=== PATIENT | male | born 1945 | race Caucasian/White ===

== ENCOUNTER 2017-04-28 18:54 | Inpatient (IN) | payer BC, OTHER ==
[~2017-04-28] VITALS: Ht 175.3 cm; Wt 82.0 kg
[2017-04-28] MEDS ORDERED: SODIUM CHLORIDE 0.9% 1000ML 1,000 ML IV SCH (18:58)
[2017-04-28 19:14] LABS: BASO % 0.3 %; BASO ABS # 0.02 K/uL (0-0.2); EOS % 1.3 %; HEMATOCRIT 49.8 % (42-52); HEMOGLOBIN 17.4 g/dL (14.0-18.0); IG# 0.02 K/uL (0.00-0.02); LYMPH % 25.1 %; LYMPH ABS # 1.86 K/uL (1.2-3.4); MEAN CELL VOLUME 97.5 fL (80-100); MEAN CORPUSCULAR HEMOGLOBIN 34.1 pg (25-34); MEAN CORPUSCULAR HGB CONC 34.9 g/dl (32-36); MONO % 8.4 %; MONO ABS # 0.62 K/uL (0.11-0.59); NEUT % 64.6 %; NEUT ABS # 4.79 K/uL (1.4-6.5); PLATELET COUNT 211 K/uL (130-400); RED CELL DISTRIBUTION WIDTH CV 13.6 % (11.5-14.5); RED CELL DISTRIBUTION WIDTH SD 48.3 fL (36.4-46.3); WHITE BLOOD COUNT 7.41 K/uL (4.8-10.8)
--- NOTE | 2017-04-28 19:18 | DIAGNOSTIC IMAGING REPORT ---
HEAD WITHOUT CONTRAST (CT) CLINICAL HISTORY: 71 years-old Male with Stroke. Acute strokelike symptoms. TECHNIQUE: Multiple axial CT images of the head were obtained without contrast. A dose lowering technique was utilized adhering to the principles of ALARA. CT DOSE: 537.48 mGy.cm COMPARISON: None. FINDINGS: No acute intracranial hemorrhage, midline shift, intracranial mass, hydrocephalus, territorial ischemia or abnormal extra-axial collection. Moderate atrophy with moderate degree of patchy low-attenuation within the periventricular white matter suggesting chronic microvascular ischemic changes. Vascular calcifications are seen at the level of the skull base. The calvarium is intact. The paranasal sinuses, mastoid air cells, and middle ear cavities are clear. IMPRESSION: No acute intracranial abnormality identified. The above report was generated using voice recognition software. It may contain grammatical, syntax or spelling errors. Electronically signed by: Gonzalo Frye M.D. 04/28/2017 7:16 PM Dictated Date/Time: 04/28/2017 7:12 PM
[2017-04-28 19:19] LABS: ISTAT CREATININE 0.9 mg/dl (0.6-1.3); ISTAT IONIZED CALCIUM 1.1 mmol/l (1.12-1.32); ISTAT POTASSIUM 3.1 mEq/L (3.3-5.0)
[2017-04-28 19:23] LABS: INR 1.1 (0.9-1.1); PTT PATIENT 27.7 SECONDS (21.0-31.0)
--- NOTE | 2017-04-28 19:37 | DIAGNOSTIC IMAGING REPORT ---
CHEST ONE VIEW PORTABLE HISTORY: 71 years-old Male Stroke acute strokelike symptoms COMPARISON: None available TECHNIQUE: Portable AP view the chest FINDINGS: Cardiac silhouette is mildly enlarged. Atherosclerosis of the aorta. No pneumothorax, pleural effusion, focal airspace consolidation or overt pulmonary edema. Minimal linear subsegmental left basilar opacities suggest atelectasis/scarring. Bones of the chest appear grossly intact. Degenerative changes noted within the shoulders and spine. IMPRESSION: Mild cardiomegaly without acute process. The above report was generated using voice recognition software. It may contain grammatical, syntax or spelling errors. Electronically signed by: Gonzalo Frye M.D. 04/28/2017 7:35 PM Dictated Date/Time: 04/28/2017 7:34 PM
[2017-04-28 19:44] LABS: BLOOD UREA NITROGEN 14 mg/dl (7-18); CALCIUM 8.9 mg/dl (8.5-10.1); CARBON DIOXIDE 26 mmol/L (21-32); CKMB 2.4 ng/ml (0.5-3.6); CREATININE 1.17 mg/dl (0.60-1.40); GLUCOSE 102 mg/dl (70-99); SODIUM 141 mmol/L (136-145)
[2017-04-28] MEDS ORDERED: MAGNESIUM SULFATE 1GM / D5W 1 GM BAG IV STA (19:46)
[2017-04-28] MEDS ORDERED: SODIUM CHLORIDE 0.9% 1000ML 1,000 ML IV STA (19:58)
[2017-04-28] MEDS ORDERED: POTASSIUM CHLORIDE 10 MEQ / 100ML WTR IV STA (19:59)
[2017-04-28] MEDS ORDERED: OPTIRAY 320 IV PRN (20:15)
[2017-04-28] MEDS ORDERED: DILT120C68 PO (20:20)
[2017-04-28] MEDS ORDERED: APIX1TAB3 PO (20:24)
[2017-04-28 20:25] LABS: ALBUMIN 3.7 gm/dl (3.4-5.0); TOTAL PROTEIN 7.7 gm/dl (6.4-8.2)
[2017-04-28] MEDS ORDERED: UNKNOWN ANTIBIOTIC (20:25)
--- NOTE | 2017-04-28 20:53 | DIAGNOSTIC IMAGING REPORT ---
NECK ANGIO WITH CONTRAST, HEAD ANGIO WITH CONTRAST CLINICAL HISTORY: 71 years-old Male presents with acute strokelike symptoms. COMPARISON STUDY: CT of the head of same day TECHNIQUE: Following the IV administration of 118 of Optiray 320, CT angiogram of the head and neck was performed from the aortic arch to the skull base. Images are reviewed in the axial, sagittal, and coronal planes. 3-D MIPS images are created and assessed. IV contrast was administered without complication. All measurements were calculated based on NASCET criteria. A dose lowering technique was utilized adhering to the principles of ALARA. CT DOSE: 583.34 mGy.cm FINDINGS: Bovine morphology of the aortic arch. There is approximately 50% luminal narrowing involving the proximal left subclavian artery proximal to the origin of the left vertebral artery. The remaining subclavian arteries are widely patent. The bilateral common carotid arteries are widely patent. There is moderate mixed plaquing of the bilateral carotid bulbs resulting in less than 50% luminal narrowing bilaterally. Tortuosity involves the petrous portion left internal carotid artery. Moderate atherosclerosis is noted involving the cavernous and clinoid portions of the internal carotid arteries bilaterally without high-grade stenosis. The bilateral middle and anterior cerebral arteries are widely patent. The anterior communicating artery is also patent and within normal limits. There is approximately 50% luminal narrowing of the left vertebral artery origin secondary to mixed plaquing. Vertebral arteries are codominant. Less than 50% luminal narrowing involves the origin of the right vertebral artery secondary to mixed plaque. Moderate plaquing involves the V4 segments of the vertebral arteries bilaterally without high-grade stenosis. The basilar and bilateral posterior cerebral arteries are widely patent. There is no aneurysm, high-grade stenosis, proximal branch occlusion or dissection. Cerebral venous sinuses appear patent and within normal limits. Moderate emphysematous changes of the lung apices. Thyroid appears homogeneous with a low attenuating 5 mm nodule the posterior right thyroid. No pathologic adenopathy identified. Soft tissues of the neck appear to be within normal limits. Mastoid air cells are clear. Minimal mucosal thickening of the right maxillary sinus. Multilevel facet arthrosis and intervertebral disc space narrowing of the cervical spine with uncovertebral spurring. Orbits and soft tissues are unremarkable. No acute intracranial abnormality identified. No abnormal intracranial enhancement. IMPRESSION: 1. No aneurysm, high-grade stenosis, dissection or proximal branch occlusion. 2. Approximately 50% luminal narrowing involves the proximal left subclavian artery secondary to atheromatous plaque. 3. Moderate emphysema. The above report was generated using voice recognition software. It may contain grammatical, syntax or spelling errors. Electronically signed by: Gonzalo Frye M.D. 04/28/2017 8:51 PM Dictated Date/Time: 04/28/2017 8:41 PM
[2017-04-28] MEDS ORDERED: ACETAMINOPHEN 325 MG TAB PO PRN (22:00)
[2017-04-28] MEDS ORDERED: APIXABAN 2.5 MG TAB PO ONE (22:02)
[2017-04-28] MEDS ORDERED: ONDANSETRON 8MG OD TAB PO PRN (22:15)
[2017-04-28] MEDS ORDERED: ACETAMINOPHEN IV 100 ML IV PRN (22:15)
[2017-04-28 22:30] VITALS: BP 168/89; PULSE 78; TEMP 36.3; O2SAT 97; Ht 175.3 cm; Wt 82.0 kg
--- NOTE | 2017-04-28 22:30 | History and Physical ---
History & Physical Date & Time of Service: Apr 28, 2017 at 22:29 Chief Complaint: Slur Speech, All Symptoms Of Stroke Primary Care Physician: No Doctor, Assigned History of Present Illness Source: patient, family, spouse, hospital records The patient is a 71-year-old male who presents to the emergency department with family, due to the development of confusion about 30 minutes prior to arrival. 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 She reports that he was walking with her when he suddenly became confused, had slurred speech, was not making any sense when he was talking, and felt generally weak. When he arrived to the ED, the nurse had to help him out of the car and she reported that he was unable to move his right upper extremity at that time. 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 He is on Eliquis for history of atrial fibrillation. Later on during his ED visit when I examined him, when he was somewhat improved , he reported to me that he was having issues with abdominal discomfort and loose stools for a few days, with decreased oral intake for that reason. Because of his initial symptoms upon presentation to the ED, he was worked up as a stroke alert. Past Medical/Surgical History Past medical/surgical history-- Atrial fibrillation Hypertension Open appendectomy/partial colectomy Family History noncontributory Social History Smoking Status: Unknown if Ever Smoked Smokeless Tobacco Use: No Alcohol Use: none Drug Use: none Marital Status: Housing status: lives with family Immunizations History of Influenza Vaccine: Unknown History of Tetanus Vaccine?: Unknown History of Pneumococcal: Unknown History of Hepatitis B Vaccine: Unknown Allergies Coded Allergies: Sulfamethoxazole w/Trimethoprim (Verified Allergy, Intermediate, HIVES, 12/06) Home Medications Scheduled Apixaban (Eliquis), Unknown Dose PO BID Diltiazem Hcl Ext Rel (Tiazac), Unknown Dose PO BID Miscellaneous Medications [Unknown Antibiotic] Review of Systems The patient denies chest pain, palpitations, shortness of breath, dyspnea on exertion, lower extremity swelling, sore throat, fevers, chills, sweats, vomiting, blood in urine or stool, dysuria , urinary frequency or urgency, lightheadedness, dizziness, loss of consciousness, rash, abnormal bruising or bleeding, generalized arthralgias or myalgias, back or neck pain, or night sweats. The review of systems is otherwise negative other than for that already noted above, and at least 10 systems have been reviewed. Physical Exam Vital Signs Date Time Temp Pulse Resp B/P (MAP) Pulse Ox O2 Delivery O2 Flow Rate FiO2 04/28/17 21:51 76 18 138/81 96 Room Air 04/28/17 20:45 75 18 159/83 97 Room Air 04/28/17 19:41 78 04/28/17 19:05 Room Air 04/28/17 19:01 36.4 04/28/17 18:56 66 20 178/89 95 Room Air The patient is awake, alert and oriented 3, normocephalic and atraumatic, lying in bed and in no acute distress. HEENT--PERRL, EOMI, mucous membranes and oropharynx dry. Neck--supple. No JVD. No bruits. Thyroid normal, trachea midline, no adenopathy. Heart--normal S1 and S2. No murmurs, rubs or gallops. Lungs--clear bilaterally, no respiratory distress, no accessory muscle use. Abdomen--decreased bowel sounds, mildly distended, moderately tympanitic, no tenderness. Extremities--no cyanosis or clubbing. No edema. There are good distal pulses b/ l. Dermatologic--normal skin turgor, normal color, no abnormal lymph nodes, no rash. Neurologic--cranial nerves II through XII grossly intact. Rheumatologic--normal range of motion. Psychiatric--normal affect. Diagnostics Laboratory Results Results Past 24 Hours Test 04/28/17 19:01 04/28/17 19:02 04/28/17 19:04 04/28/17 19:07 Range/Units Bedside Prothrombin Time INR 1.1 0.9-1.1 Bedside Glucose 106 70-99 mg/dl White Blood Count 7.41 4.8-10.8 K/uL Red Blood Count 5.11 4.7-6.1 M/uL Hemoglobin 17.4 14.0-18.0 g/dL Hematocrit 49.8 42-52 % Mean Corpuscular Volume 97.5 80-100 fL Mean Corpuscular Hemoglobin 34.1 25-34 pg Mean Corpuscular Hemoglobin Concent 34.9 32-36 g/dl Platelet Count 211 130-400 K/uL Mean Platelet Volume 10.0 7.4-10.4 fL Neutrophils (%) (Auto) 64.6 % Lymphocytes (%) (Auto) 25.1 % Monocytes (%) (Auto) 8.4 % Eosinophils (%) (Auto) 1.3 % Basophils (%) (Auto) 0.3 % Neutrophils # (Auto) 4.79 1.4-6.5 K/uL Lymphocytes # (Auto) 1.86 1.2-3.4 K/uL Monocytes # (Auto) 0.62 0.11-0.59 K/uL Eosinophils # (Auto) 0.10 0-0.5 K/uL Basophils # (Auto) 0.02 0-0.2 K/uL RDW Standard Deviation 48.3 36.4-46.3 fL RDW Coefficient of Variation 13.6 11.5-14.5 % Immature Granulocyte % (Auto) 0.3 % Immature Granulocyte # (Auto) 0.02 0.00-0.02 K/uL Prothrombin Time 11.4 9.0-12.0 SECONDS Prothromb Time International Ratio 1.1 0.9-1.1 Activated Partial Thromboplast Time 27.7 21.0-31.0 SECONDS Partial Thromboplastin Ratio 1.1 Sodium Level 141 136-145 mmol/L Potassium Level 3.0 3.5-5.1 mmol/L Chloride Level 106 98-107 mmol/L Carbon Dioxide Level 26 21-32 mmol/L Anion Gap 9.0 20.0 16-25 mmol/L Blood Urea Nitrogen 14 7-18 mg/dl Creatinine 1.17 0.60-1.40 mg/dl Est Creatinine Clear Calc Drug Dose 62.2 ml/min Estimated GFR () 72.8 Estimated GFR (Non- 62.8 BUN/Creatinine Ratio 12.1 10-20 Random Glucose 102 70-99 mg/dl Calcium Level 8.9 8.5-10.1 mg/dl Magnesium Level 0.4 1.8-2.4 mg/dl Total Bilirubin 0.7 0.2-1 mg/dl Direct Bilirubin 0.2 0-0.2 mg/dl Aspartate Amino Transf (AST/SGOT) 28 15-37 U/L Alanine Aminotransferase (ALT/SGPT) 44 12-78 U/L Alkaline Phosphatase 77 45-117 U/L Total Creatine Kinase 155 39-308 U/L Creatine Kinase MB 2.4 0.5-3.6 ng/ml Creatine Kinase MB Ratio 1.5 0-3.0 Troponin I < 0.015 0-0.045 ng/ml Total Protein 7.7 6.4-8.2 gm/dl Albumin 3.7 3.4-5.0 gm/dl Bedside Hemoglobin 17.0 14.0-18.0 g/dl Bedside Hematocrit 50 42-52 % Bedside Sodium 144 135-144 mEq/L Bedside Potassium 3.1 3.3-5.0 mEq/L Bedside Chloride 102 101-112 mEq/L Bedside Total CO2 25 24-31 mEq/l Bedside Blood Urea Nitrogen 14 7-18 mg/dl Bedside Creatinine 0.9 0.6-1.3 mg/dl Bedside Glucose (other) 105 70-99 mg/dl Bedside Ionized Calcium (Robert) 1.10 1.12-1.32 mmol/l Test 04/28/17 20:35 Range/Units Urine Color YELLOW Urine Appearance CLEAR CLEAR Urine pH 6.5 4.5-7.5 Urine Specific [place] 1.020 1.000-1.030 Urine Protein 2+ NEG Urine Glucose (UA) NEG NEG Urine Ketones TRACE NEG Urine Occult Blood NEG NEG Urine Nitrite NEG NEG Urine Bilirubin NEG NEG Urine Urobilinogen NEG NEG Urine Leukocyte Esterase NEG NEG Urine WBC (Auto) 1-5 0-5 /hpf Urine RBC (Auto) 0-4 0-4 /hpf Urine Hyaline Casts (Auto) 1-5 0-5 /lpf Urine Epithelial Cells (Auto) 5-10 0-5 /lpf Urine Bacteria (Auto) NEG NEG Diagnostic Radiology Patient Name: KURTIS NOGUEIRA Unit Number: [id number] Dictated: 04/28/171911 Transcribed: 04/28/171911 [facility] Printed Date/Time: [~ rep prt dt]/[~ rep prt tm] [~ rep ct labl] - [~ rep ct ivnm] [facility] [place] [address] Dictated: 04/28/171911 Transcribed: 04/28/171911 JR Printed Date/Time: [~ rep prt dt]/[~ rep prt tm] [~ rep ct labl] - [~ rep ct ivnm] [~ rep ct add3]] HEAD WITHOUT CONTRAST (CT) CLINICAL HISTORY: 71 years-old Male with Stroke. Acute strokelike symptoms. TECHNIQUE: Multiple axial CT images of the head were obtained without contrast. A dose lowering technique was utilized adhering to the principles of ALARA. CT DOSE: 537.48 mGy.cm COMPARISON: None. FINDINGS: No acute intracranial hemorrhage, midline shift, intracranial mass, hydrocephalus, territorial ischemia or abnormal extra-axial collection. Moderate atrophy with moderate degree of patchy low-attenuation within the periventricular white matter suggesting chronic microvascular ischemic changes. Vascular calcifications are seen at the level of the skull base. The calvarium is intact. The paranasal sinuses, mastoid air cells, and middle ear cavities are clear. IMPRESSION: No acute intracranial abnormality identified. The above report was generated using voice recognition software. It may contain grammatical, syntax or spelling errors. Electronically signed by: Gonzalo Frye M.D. 04/28/2017 7:16 PM Dictated Date/Time: 04/28/2017 7:12 PM The status of this report is Signed. Draft = Not yet reviewed or approved by Radiologist. Signed = Reviewed and approved by Radiologist. <AttendingPhy></AttendingPhy> <FamilyPhy></FamilyPhy> <PrimaryPhy></PrimaryPhy> <UnitNumber>[id number]</UnitNumber> <VisitNumber>[id number]</VisitNumber> < PatientName>KURTIS NOGUEIRA JR</PatientName> <DateOfBirth>1945</ DateOfBirth> <Location>[facility]</Location> <ServiceDate>04/28/17</ServiceDate> <MNE >ESINDI</MNE> <OrderingPhy>Kael Harrell DO</OrderingPhy> <OrderingPhyMNE>f rep ord dr zhu</OrderingPhyMNE> <DictatingPhyMNE>f rep dict dr zhu</ DictatingPhyMNE> <CCListMNE>f rep ct mne</CCListMNE> <AdmittingPhyMNE>f pt admit dr zhu</AdmittingPhyMNE> <AttendingPhyMNE>f pt attend dr mne</ AttendingPhyMNE> <ConsultingPhyMNE>f pt consult dr zhu</ConsultingPhyMNE> <FamilyPhyMNE>f pt fam dr zhu</FamilyPhyMNE> <OtherPhyMNE>f pt other dr zhu</OtherPhyMNE> < PrimaryPhyMNE>f pt prim care dr zhu</PrimaryPhyMNE> <ReferringPhyMNE>f pt referring dr zhu</ReferringPhyMNE> Patient Name: KURTIS NOGUEIRA JR Unit Number: [id number] Dictated: 04/28/171933 Transcribed: 04/28/171933 J[facility] Printed Date/Time: [~ rep prt dt]/[~ rep prt tm] [~ rep ct labl] - [~ rep ct ivnm] [facility] Radiology Department [place] [id number] Dictated: 04/28/171933 Transcribed: 04/28/171933 [facility] Printed Date/Time: [~ rep prt dt]/[~ rep prt tm] [~ rep ct labl] - [~ rep ct ivnm] CHEST ONE VIEW PORTABLE HISTORY: 71 years-old Male Stroke acute strokelike symptoms COMPARISON: None available TECHNIQUE: Portable AP view the chest FINDINGS: Cardiac silhouette is mildly enlarged. Atherosclerosis of the aorta. No pneumothorax, pleural effusion, focal airspace consolidation or overt pulmonary edema. Minimal linear subsegmental left basilar opacities suggest atelectasis/scarring. Bones of the chest appear grossly intact. Degenerative changes noted within the shoulders and spine. IMPRESSION: Mild cardiomegaly without acute process. The above report was generated using voice recognition software. It may contain grammatical, syntax or spelling errors. Electronically signed by: Gonzalo Frye M.D. 04/28/2017 7:35 PM Dictated Date/Time: 04/28/2017 7:34 PM The status of this report is Signed. Draft = Not yet reviewed or approved by Radiologist. Signed = Reviewed and approved by Radiologist. <AttendingPhy></AttendingPhy> <FamilyPhy></FamilyPhy> <PrimaryPhy></PrimaryPhy> <UnitNumber>[id number]</UnitNumber> <VisitNumber>[id number]</VisitNumber> < PatientName>KURTIS NOGUEIRA Nader [place]</PatientName> <DateOfBirth>1945</ DateOfBirth> <Location>[facility]</Location> <ServiceDate>04/28/17</ServiceDate> <MNE >ESINDI</MNE> <OrderingPhy>Kael Harrell DO</OrderingPhy> <OrderingPhyMNE>f rep ord dr zhu</OrderingPhyMNE> <DictatingPhyMNE>f rep dict dr zhu</ DictatingPhyMNE> <CCListMNE>f rep ct mne</CCListMNE> <AdmittingPhyMNE>f pt admit dr zhu</AdmittingPhyMNE> <AttendingPhyMNE>f pt attend dr zhu</ AttendingPhyMNE> <ConsultingPhyMNE>f pt consult dr zhu</ConsultingPhyMNE> <FamilyPhyMNE>f pt fam dr zhu</FamilyPhyMNE> <OtherPhyMNE>f pt other dr zhu</OtherPhyMNE> < PrimaryPhyMNE>f pt prim care dr zhu</PrimaryPhyMNE> <ReferringPhyMNE>f pt referring dr zhu</ReferringPhyMNE> Patient Name: KURTIS NOGUEIRA Nader [place] Unit Number: [id number] Dictated: 04/28/172040 Transcribed: 04/28/172040 [facility] Printed Date/Time: [~ rep prt dt]/[~ rep prt tm] [~ rep ct labl] - [~ rep ct ivnm] [facility] Radiology Department [place], [place] [id number] Dictated: 04/28/172040 Transcribed: 04/28/172040 [facility] Printed Date/Time: [~ rep prt dt]/[~ rep prt tm] [~ rep ct labl] - [~ rep ct ivnm] [~ rep ct add3]] NECK ANGIO WITH CONTRAST, HEAD ANGIO WITH CONTRAST CLINICAL HISTORY: 71 years-old Male presents with acute strokelike symptoms. COMPARISON STUDY: CT of the head of same day TECHNIQUE: Following the IV administration of 118 of Optiray 320, CT angiogram of the head and neck was performed from the aortic arch to the skull base. Images are reviewed in the axial, sagittal, and coronal planes. 3-D MIPS images are created and assessed. IV contrast was administered without complication. All measurements were calculated based on NASCET criteria. A dose lowering technique was utilized adhering to the principles of ALARA. CT DOSE: 583.34 mGy.cm FINDINGS: Bovine morphology of the aortic arch. There is approximately 50% luminal narrowing involving the proximal left subclavian artery proximal to the origin of the left vertebral artery. The remaining subclavian arteries are widely patent. The bilateral common carotid arteries are widely patent. There is moderate mixed plaquing of the bilateral carotid bulbs resulting in less than 50% luminal narrowing bilaterally. Tortuosity involves the petrous portion left internal carotid artery. Moderate atherosclerosis is noted involving the cavernous and clinoid portions of the internal carotid arteries bilaterally without high-grade stenosis. The bilateral middle and anterior cerebral arteries are widely patent. The anterior communicating artery is also patent and within normal limits. There is approximately 50% luminal narrowing of the left vertebral artery origin secondary to mixed plaquing. Vertebral arteries are codominant. Less than 50% luminal narrowing involves the origin of the right vertebral artery secondary to mixed plaque. Moderate plaquing involves the V4 segments of the vertebral arteries bilaterally without high-grade stenosis. The basilar and bilateral posterior cerebral arteries are widely patent. There is no aneurysm, high-grade stenosis, proximal branch occlusion or dissection. Cerebral venous sinuses appear patent and within normal limits. Moderate emphysematous changes of the lung apices. Thyroid appears homogeneous with a low attenuating 5 mm nodule the posterior right thyroid. No pathologic adenopathy identified. Soft tissues of the neck appear to be within normal limits. Mastoid air cells are clear. Minimal mucosal thickening of the right maxillary sinus. Multilevel facet arthrosis and intervertebral disc space narrowing of the cervical spine with uncovertebral spurring. Orbits and soft tissues are unremarkable. No acute intracranial abnormality identified. No abnormal intracranial enhancement. IMPRESSION: 1. No aneurysm, high-grade stenosis, dissection or proximal branch occlusion. 2. Approximately 50% luminal narrowing involves the proximal left subclavian artery secondary to atheromatous plaque. 3. Moderate emphysema. The above report was generated using voice recognition software. It may contain grammatical, syntax or spelling errors. Electronically signed by: Gonzalo Frye M.D. 04/28/2017 8:51 PM Dictated Date/Time: 04/28/2017 8:41 PM The status of this report is Signed. Draft = Not yet reviewed or approved by Radiologist. Signed = Reviewed and approved by Radiologist. <AttendingPhy></AttendingPhy> <FamilyPhy>No Doctor, Assigned</FamilyPhy> < PrimaryPhy>No Doctor, Assigned</PrimaryPhy> <UnitNumber>[id number]</UnitNumber> <VisitNumber>[id number]</VisitNumber> <PatientName>KURTIS NOGUEIRA JR</ PatientName> <DateOfBirth>1945</DateOfBirth> <Location>[facility]</Location> < ServiceDate>04/28/17</ServiceDate> <MNE>ESINDI</MNE> <OrderingPhy>Kael Harrell DO</OrderingPhy> <OrderingPhyMNE>f rep ord dr zhu</OrderingPhyMNE> < DictatingPhyMNE>f rep dict dr zhu</DictatingPhyMNE> <CCListMNE>f rep ct mne</ CCListMNE> <AdmittingPhyMNE>f pt admit dr zhu</AdmittingPhyMNE> <AttendingPhyMNE >f pt attend dr zhu</AttendingPhyMNE> <ConsultingPhyMNE>f pt consult dr zhu</ConsultingPhyMNE> <FamilyPhyMNE>f pt fam dr zhu</FamilyPhyMNE> <OtherPhyMNE>f pt other dr zhu</OtherPhyMNE> < PrimaryPhyMNE>f pt prim care dr zhu</PrimaryPhyMNE> <ReferringPhyMNE>f pt referring dr zhu</ReferringPhyMNE> Patient Name: KURTIS NOGUEIRA JR Unit Number: [id number] Dictated: 04/28/172249 Transcribed: 04/28/172249 [facility] Printed Date/Time: [~ rep prt dt]/[~ rep prt tm] [~ rep ct labl] - [~ rep ct ivnm] [facility] Radiology Department [place] [id number] Dictated: 04/28/172249 Transcribed: 04/28/172249 J[facility] Printed Date/Time: [~ rep prt dt]/[~ rep prt tm] [~ rep ct labl] - [~ rep ct ivnm] [~ rep ct add3]] ABDOMEN AND PELVIS CT WITHOUT CONTRAST CT DOSE: 721.29 mGy.cm HISTORY: Acute generalized abdominal pain with distention and diarrhea abdominal pain, distention, diarrhea TECHNIQUE: Multiaxial CT images of the abdomen and pelvis were performed without contrast. A dose lowering technique was utilized adhering to the principles of ALARA. COMPARISON STUDY: None. FINDINGS: Mild dependent subsegmental bibasilar atelectasis. There is no pneumatosis or pneumoperitoneum identified. Imaged inferior cardiac chambers are moderately enlarged. Mural fibrofatty changes of the left ventricular apex suggest remote infarction. The liver, spleen, pancreas and right adrenal gland are within normal limits. There is nodular thickening of the left adrenal gland with mild stranding stranding suggesting hyperplasia. Cholelithiasis without CT evidence of acute cholecystitis. No intrahepatic biliary ductal dilation. Retained contrast in the renal collecting systems from recent contrast-enhanced study. Mild nonspecific bilateral perinephric stranding. Exophytic hyperattenuating 1.3 cm lesion of the inferior pole left kidney posteriorly suggests proteinaceous or hemorrhagic cyst. No obstructive uropathy identified. Ureters are normal in caliber. Prostate is mildly prominent in size with central coarse calcifications. Small fat filled left inguinal hernia. Asymmetric prominence of the right seminal vesicles. 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 Mild dilation of the bilateral external iliac arteries also noted, 2.0 cm on the left and 1.8 cm on the right. No bulky adenopathy identified. Small sliding-type hiatal hernia. Prior right lower quadrant abdominal wall hernia repair. Extensive sigmoid colon diverticulosis without CT evidence of acute diverticulitis. Prior appendectomy. Mildly prominent loops of small bowel within the right upper and central upper abdomen demonstrate internal fecal contents in a mildly prominent in size. Additionally, there are several dilated loops of small bowel within the left upper abdomen measuring up to 4.0 cm transversely with associated air-fluid levels. The dilated loops are centered around an area of prior partial small bowel resection with a side side anastomosis, image 160 series 3. Angulated loops of small bowel are noted on image 233 series 3 suggesting underlying adhesions. Diastases recti with fat filled periumbilical hernia, diastases 2.2 cm. Bones appear intact. IMPRESSION: 1. Several loops of dilated small bowel within the central and left upper abdomen centered about an area of small bowel [id number] anastomosis are noted with associated angular loops and slightly decompressed distal small bowel compatible with small bowel obstruction. No pneumatosis or pneumoperitoneum identified. 2. Extensive sigmoid colon diverticulosis without CT evidence of acute diverticulitis. 3. Cholelithiasis without CT evidence of acute cholecystitis. 4. Small sliding type hiatal hernia. 5. 1.3 cm proteinaceous or hemorrhagic cyst of the left kidney. Electronically signed by: Gonzalo Frye M.D. 04/28/2017 11:05 PM Dictated Date/Time: 04/28/2017 10:50 PM The status of this report is Signed. Draft = Not yet reviewed or approved by Radiologist. Signed = Reviewed and approved by Radiologist. <AttendingPhy>Robbin Reynolds M.D.</AttendingPhy> <FamilyPhy>No Doctor, Assigned</FamilyPhy> <PrimaryPhy>No Doctor, Assigned</PrimaryPhy> <UnitNumber> [id number]</UnitNumber> <VisitNumber>[id number]</VisitNumber> <PatientName> KURTIS NOGUEIRA </PatientName> <DateOfBirth>1945</DateOfBirth> < Location>[facility]</Location> <ServiceDate>04/28/17</ServiceDate> <MNE>ESINDI</MNE> < OrderingPhy>Robbin Reynolds M.D.</OrderingPhy> <OrderingPhyMNE>f rep ord dr zhu</OrderingPhyMNE> <DictatingPhyMNE>f rep dict dr zhu</DictatingPhyMNE> < CCListMNE>f rep ct elinore</CCListMNE> <AdmittingPhyMNE>f pt admit dr zhu</ AdmittingPhyMNE> <AttendingPhyMNE>f pt attend dr zhu</AttendingPhyMNE> <ConsultingPhyMNE>f pt consult dr zhu</ConsultingPhyMNE> <FamilyPhyMNE>f pt fam dr zhu</FamilyPhyMNE> <OtherPhyMNE>f pt other dr zhu</OtherPhyMNE> < PrimaryPhyMNE>f pt prim care dr zhu</PrimaryPhyMNE> <ReferringPhyMNE>f pt referring dr zhu</ReferringPhyMNE> EKG EKG shows atrial fibrillation at 71 bpm, right bundle branch block, no acute ST- T changes. Impression Assessment and Plan Altered mental state/initial presentation as a stroke alert-- CT of the head without contrast was normal. CTA of head was normal. CTA of neck with 50% left subclavian stenosis. We will order MRI of brain combo for further assessment. His symptoms have completely resolved at this time. We will consult neurology. Small bowel obstruction adjacent to [id number] anastomosis/history of appendectomy and partial bowel resection/diarrhea with associated hypomagnesemia and hypokalemia-- Admit with n.p.o. status. Aggressively replace electrolytes with IV magnesium and IV potassium. Serial CBC with differential, chemistry profile and magnesium levels. NSS plus KCl 20 mEq 100 mils per hour. Order stool studies Protonix 40 mg IV daily. Zofran 4 mg IV every 6 hours as needed. Zosyn 3.375 mg IV every 8 hours. No need for NG tube to low intermittent suction at this time. Consult general surgery. Atrial fibrillation-- Hold apixaban and diltiazem. Lopressor 5 mg IV every 4 hours with hold parameters. Left subclavian artery stenosis 50%-- No signs of subclavian steal. Should be followed as an outpatient. Advanced Directives Existing Advance Directive: No Existing Living Will: No Existing Power of Vest Maker: No Resuscitation Status VTE Prophylaxis Will order VTE Prophylaxis: Yes
--- NOTE | 2017-04-28 22:41 | EMERGENCY ROOM VISIT NOTE ---
History Report prepared by Olya: Khalida Giron Under the Supervision of: Dr. Kael Harrell D.O. First contact with patient: 18:56 Chief Complaint: STROKE SYMPTOMS Stated Complaint: SLUR SPEECH, ALL SYMPTOMS OF STROKE Nursing Triage Summary: Patient was at the [employer] with spouse and was there to play with the back About 183 spouse noted he began to have weakness and not speaking correctly ( he didn't make sense) with slurred speech Required assistance to get out of the vehicle Unable to follow commands Initially unable to lift right arm History of Present Illness The patient is a 71 year old male who presents to the Emergency Room with complaints of persistent confusion starting 30 minutes ago. The patient was walking with his when he suddenly became confused. His speech was slurring and he was not making any sense. He was weak and nursing had to help him out of the car and he was unable to move his right upper extremity at that point. He was acting normally until 30 minutes ago. He is normally completely oriented. He had a previous surgery on his face for cancer resulting in a facial droop. He is on a blood thinner for a history of atrial fibrillation. He does not have any history of seizure. His notes that he has had a cold recently. He has complained of a headache. He has complained that his stomach is sore which he attributed to coughing. The history is limited secondary to the patient's confusion. Source of History: spouse/significant other, nursing staff History Limited By: other (confusion) Onset: 30 minutes ago Position: other (global) Quality: other (confusion) Timing: other (persistent) Associated Symptoms: + headache, + cough, + abdominal pain, + weakness Review of Systems Limited secondary to patient's confusion. Past Medical & Surgical Medical Problems: (1) Altered mental state (2) Atrial fibrillation (3) Hypomagnesemia Family History No pertinent family history stated. Social History Smoking Status: Unknown if Ever Smoked Marital Status: Current/Historical Medications Scheduled Apixaban (Eliquis), Unknown Dose PO BID Diltiazem Hcl Ext Rel (Tiazac), Unknown Dose PO BID Miscellaneous Medications [Unknown Antibiotic] Allergies Coded Allergies: Sulfamethoxazole w/Trimethoprim (Verified Allergy, Intermediate, HIVES, 12/06) Physical Exam Vital Signs Date Time Temp Pulse Resp B/P (MAP) Pulse Ox O2 Delivery O2 Flow Rate FiO2 04/28/17 21:51 76 18 138/81 96 Room Air 04/28/17 20:45 75 18 159/83 97 Room Air 04/28/17 19:41 78 04/28/17 19:05 Room Air 04/28/17 19:01 36.4 04/28/17 18:56 66 20 178/89 95 Room Air Physical Exam GENERAL: Sitting up in bed, disheveled, ill appearing, nontoxic EYE EXAM: normal conjunctiva. PERRL and EOM's intact. OROPHARYNX: no exudate, no erythema, lips, buccal mucosa, and tongue normal and mucous membranes are moist NECK: supple, no nuchal rigidity, no adenopathy, non-tender LUNGS: Clear to auscultation. Normal chest wall mechanics HEART: no murmurs, S1 normal and S2 normal ABDOMEN: abdomen soft, non-tender, normo-active bowel sounds, no masses, no rebound or guarding. BACK: Back is symmetrical on inspection and there is no deformity, no midline tenderness, no CVA tenderness. SKIN: no rashes and no bruising UPPER EXTREMITIES: upper extremities are grossly normal. LOWER EXTREMITIES: No pitting edema. NEURO EXAM: Awake, not following commands, intermittently mumbling, not moving RUE, cranial nerves 2-12 intact with slight facial droop on right which is old per . Repeat neuro exam 5 minutes later: Intermittently following commands, speaking in sentences, but not making sense. Cranial nerves 2-12 intact with slight facial droop on the right, old per . Moving all extremities, nonfocal, unable to perform drift and finger to nose. Medical Decision & Procedures ER Provider Diagnostic Interpretation: Radiology results as stated below per my review and the radiologist's interpretation: CHEST ONE VIEW PORTABLE HISTORY: 71 years-old Male Stroke acute strokelike symptoms COMPARISON: None available TECHNIQUE: Portable AP view the chest FINDINGS: Cardiac silhouette is mildly enlarged. Atherosclerosis of the aorta. No pneumothorax, pleural effusion, focal airspace consolidation or overt pulmonary edema. Minimal linear subsegmental left basilar opacities suggest atelectasis/scarring. Bones of the chest appear grossly intact. Degenerative changes noted within the shoulders and spine. IMPRESSION: Mild cardiomegaly without acute process. The above report was generated using voice recognition software. It may contain grammatical, syntax or spelling errors. Electronically signed by: Gonzalo Frye M.D. 04/28/2017 7:35 PM Dictated Date/Time: 04/28/2017 7:34 PM HEAD WITHOUT CONTRAST (CT) CLINICAL HISTORY: 71 years-old Male with Stroke. Acute strokelike symptoms. TECHNIQUE: Multiple axial CT images of the head were obtained without contrast. A dose lowering technique was utilized adhering to the principles of ALARA. CT DOSE: 537.48 mGy.cm COMPARISON: None. FINDINGS: No acute intracranial hemorrhage, midline shift, intracranial mass, hydrocephalus, territorial ischemia or abnormal extra-axial collection. Moderate atrophy with moderate degree of patchy low-attenuation within the periventricular white matter suggesting chronic microvascular ischemic changes. Vascular calcifications are seen at the level of the skull base. The calvarium is intact. The paranasal sinuses, mastoid air cells, and middle ear cavities are clear. IMPRESSION: No acute intracranial abnormality identified. The above report was generated using voice recognition software. It may contain grammatical, syntax or spelling errors. Electronically signed by: Gonzalo Frye M.D. 04/28/2017 7:16 PM Dictated Date/Time: 04/28/2017 7:12 PM NECK ANGIO WITH CONTRAST, HEAD ANGIO WITH CONTRAST CLINICAL HISTORY: 71 years-old Male presents with acute strokelike symptoms. COMPARISON STUDY: CT of the head of same day TECHNIQUE: Following the IV administration of 118 of Optiray 320, CT angiogram of the head and neck was performed from the aortic arch to the skull base. Images are reviewed in the axial, sagittal, and coronal planes. 3-D MIPS images are created and assessed. IV contrast was administered without complication. All measurements were calculated based on NASCET criteria. A dose lowering technique was utilized adhering to the principles of ALARA. CT DOSE: 583.34 mGy.cm FINDINGS: Bovine morphology of the aortic arch. There is approximately 50% luminal narrowing involving the proximal left subclavian artery proximal to the origin of the left vertebral artery. The remaining subclavian arteries are widely patent. The bilateral common carotid arteries are widely patent. There is moderate mixed plaquing of the bilateral carotid bulbs resulting in less than 50% luminal narrowing bilaterally. Tortuosity involves the petrous portion left internal carotid artery. Moderate atherosclerosis is noted involving the cavernous and clinoid portions of the internal carotid arteries bilaterally without high-grade stenosis. The bilateral middle and anterior cerebral arteries are widely patent. The anterior communicating artery is also patent and within normal limits. There is approximately 50% luminal narrowing of the left vertebral artery origin secondary to mixed plaquing. Vertebral arteries are codominant. Less than 50% luminal narrowing involves the origin of the right vertebral artery secondary to mixed plaque. Moderate plaquing involves the V4 segments of the vertebral arteries bilaterally without high-grade stenosis. The basilar and bilateral posterior cerebral arteries are widely patent. There is no aneurysm, high-grade stenosis, proximal branch occlusion or dissection. Cerebral venous sinuses appear patent and within normal limits. Moderate emphysematous changes of the lung apices. Thyroid appears homogeneous with a low attenuating 5 mm nodule the posterior right thyroid. No pathologic adenopathy identified. Soft tissues of the neck appear to be within normal limits. Mastoid air cells are clear. Minimal mucosal thickening of the right maxillary sinus. Multilevel facet arthrosis and intervertebral disc space narrowing of the cervical spine with uncovertebral spurring. Orbits and soft tissues are unremarkable. No acute intracranial abnormality identified. No abnormal intracranial enhancement. IMPRESSION: 1. No aneurysm, high-grade stenosis, dissection or proximal branch occlusion. 2. Approximately 50% luminal narrowing involves the proximal left subclavian artery secondary to atheromatous plaque. 3. Moderate emphysema. The above report was generated using voice recognition software. It may contain grammatical, syntax or spelling errors. Electronically signed by: Gonzalo Frye M.D. 04/28/2017 8:51 PM Dictated Date/Time: 04/28/2017 8:41 PM Laboratory Results 04/28/17 19:04 Red Blood Count 5.11, Mean Corpuscular Volume 97.5, Mean Corpuscular Hemoglobin 34.1, Mean Corpuscular Hemoglobin Concent 34.9, Mean Platelet Volume 10.0, Neutrophils (%) (Auto) 64.6, Lymphocytes (%) (Auto) 25.1, Monocytes (%) (Auto) 8.4, Eosinophils (%) (Auto) 1.3, Basophils (%) (Auto) 0.3, Neutrophils # (Auto) 4.79, Lymphocytes # (Auto) 1.86, Monocytes # (Auto) 0.62, Eosinophils # (Auto) 0.10, Basophils # (Auto) 0.02 04/28/17 19:04 Test 04/28/17 19:01 04/28/17 19:02 04/28/17 19:04 04/28/17 19:07 Bedside Prothrombin Time INR 1.1 (0.9-1.1) Bedside Glucose 106 mg/dl (70-99) White Blood Count 7.41 K/uL (4.8-10.8) Red Blood Count 5.11 M/uL (4.7-6.1) Hemoglobin 17.4 g/dL (14.0-18.0) Hematocrit 49.8 % (42-52) Mean Corpuscular Volume 97.5 fL (80-100) Mean Corpuscular Hemoglobin 34.1 pg (25-34) Mean Corpuscular Hemoglobin Concent 34.9 g/dl (32-36) Platelet Count 211 K/uL (130-400) Mean Platelet Volume 10.0 fL (7.4-10.4) Neutrophils (%) (Auto) 64.6 % Lymphocytes (%) (Auto) 25.1 % Monocytes (%) (Auto) 8.4 % Eosinophils (%) (Auto) 1.3 % Basophils (%) (Auto) 0.3 % Neutrophils # (Auto) 4.79 K/uL (1.4-6.5) Lymphocytes # (Auto) 1.86 K/uL (1.2-3.4) Monocytes # (Auto) 0.62 K/uL (0.11-0.59) Eosinophils # (Auto) 0.10 K/uL (0-0.5) Basophils # (Auto) 0.02 K/uL (0-0.2) RDW Standard Deviation 48.3 fL (36.4-46.3) RDW Coefficient of Variation 13.6 % (11.5-14.5) Immature Granulocyte % (Auto) 0.3 % Immature Granulocyte # (Auto) 0.02 K/uL (0.00-0.02) Prothrombin Time 11.4 SECONDS (9.0-12.0) Prothromb Time International Ratio 1.1 (0.9-1.1) Activated Partial Thromboplast Time 27.7 SECONDS (21.0-31.0) Partial Thromboplastin Ratio 1.1 Est Creatinine Clear Calc Drug Dose 62.2 ml/min Estimated GFR () 72.8 Estimated GFR (Non- 62.8 BUN/Creatinine Ratio 12.1 (10-20) Calcium Level 8.9 mg/dl (8.5-10.1) Magnesium Level 0.4 mg/dl (1.8-2.4) Total Bilirubin 0.7 mg/dl (0.2-1) Direct Bilirubin 0.2 mg/dl (0-0.2) Aspartate Amino Transf (AST/SGOT) 28 U/L (15-37) Alanine Aminotransferase (ALT/SGPT) 44 U/L (12-78) Alkaline Phosphatase 77 U/L (45-117) Total Creatine Kinase 155 U/L (39-308) Creatine Kinase MB 2.4 ng/ml (0.5-3.6) Creatine Kinase MB Ratio 1.5 (0-3.0) Troponin I < 0.015 ng/ml (0-0.045) Total Protein 7.7 gm/dl (6.4-8.2) Albumin 3.7 gm/dl (3.4-5.0) Bedside Hemoglobin 17.0 g/dl (14.0-18.0) Bedside Hematocrit 50 % (42-52) Bedside Sodium 144 mEq/L (135-144) Bedside Potassium 3.1 mEq/L (3.3-5.0) Bedside Chloride 102 mEq/L (101-112) Bedside Total CO2 25 mEq/l (24-31) Anion Gap 20.0 mmol/L (16-25) Bedside Blood Urea Nitrogen 14 mg/dl (7-18) Bedside Creatinine 0.9 mg/dl (0.6-1.3) Bedside Glucose (other) 105 mg/dl (70-99) Bedside Ionized Calcium (Robert) 1.10 mmol/l (1.12-1.32) Test 04/28/17 20:35 Urine Color YELLOW Urine Appearance CLEAR (CLEAR) Urine pH 6.5 (4.5-7.5) Urine Specific [place] 1.020 (1.000-1.030) Urine Protein 2+ (NEG) Urine Glucose (UA) NEG (NEG) Urine Ketones TRACE (NEG) Urine Occult Blood NEG (NEG) Urine Nitrite NEG (NEG) Urine Bilirubin NEG (NEG) Urine Urobilinogen NEG (NEG) Urine Leukocyte Esterase NEG (NEG) Urine WBC (Auto) 1-5 /hpf (0-5) Urine RBC (Auto) 0-4 /hpf (0-4) Urine Hyaline Casts (Auto) 1-5 /lpf (0-5) Urine Epithelial Cells (Auto) 5-10 /lpf (0-5) Urine Bacteria (Auto) NEG (NEG) Laboratory results per my review. Medications Administered Medications (Trade) Dose Ordered Sig/Jaylyn Route Start Time Stop Time Status Last Admin Dose Admin Sodium Chloride 1,000 ml @ 50 mls/hr Q20H IV 04/28/17 18:58 05/28/17 18:57 04/28/17 19:24 50 MLS/HR Magnesium Sulfate (Magnesium Sulfate) 2 gm NOW STAT IV 04/28/17 19:46 04/28/17 19:47 DC 04/28/17 20:02 2 GM Sodium Chloride 1,000 ml @ 999 mls/hr Q1H1M STAT IV 04/28/17 19:58 04/28/17 20:58 DC 04/28/17 20:03 999 MLS/HR Potassium Chloride (Kcl 10 Meq / Wtr) 10 meq NOW STAT IV 04/28/17 19:59 04/28/17 20:01 DC 04/28/17 20:42 10 MEQ ECG Per My Interpretation Indication: altered mental status Rate (beats per minute): 71 Rhythm: atrial fibrillation Findings: nonspecific-ST abn (Inferior, Anterior), RBBB, other (normal axis) ED Course ED COURSE: Vital signs were reviewed and showed hypertension. The patients medical record was reviewed The above diagnostic studies were performed and reviewed. ED treatments and interventions as stated above. 1855: The patient was evaluated in room A1. A complete history and physical examination was performed. 1857: NSS 1000 ml @ 50 mls/hr IV. 1914: I discussed the patient's case with Dr. Taylor, Neurology Telemedicine . He will evaluate the patient. The patient is not a candidate for TPA as he is on eliquis. 1945: Magnesium Sulfate 2 gm IV. 1954: Dr. Taylor is recommending CTA. 1957: Sodium Chloride 1000 ml @ 999 mls/hr IV. 1958: Potassium Chloride 10 meq IV. 2103: Upon reevaluation, the patient is completely back to normal. Repeat neurological exam shows normal sensorium, cranial nerves II-XII intact, normal speech, no weakness of arms, no weakness of legs. No drift. Finger to nose intact. Gross sensation intact. I discussed my findings with the patient and family and they understand and agree with the treatment plan. Based on the patients age, coexisting illnesses, exam and lab findings the decision to treat as an inpatient was made. The patient remained stable while under my care. The patient will be evaluated for further management. 2115: I reviewed the patient's case with ELIZA Villafuerte hospitalist. He will evaluate the patient for further management. Medical Decision Differential Diagnosis includes but is not limited to ischemic Stroke, hemorrhagic stroke, bells palsy, mass, neoplasm, migraine headache, seizure, subarachnoid hemorrhage, TIA, and transient global amnesia. Patient is a 71-year-old male who presents to the ER for sudden onset of confusion and weakness which started half hour prior to arrival. On exam he is initially confused with a aphasia and there was some questionable right upper extremity weakness. CBC was unremarkable. BMP was remarkable for mild hypokalemia at 3.0.. Magnesium was low at 0.4. Troponin was negative. CT of the head initially shows no acute bleed or infarct. Stroke alert was called. Chest x-ray unremarkable. Patient was evaluated by neurology but due to Eliquis was not a TPA candidate. CTA of the head and neck show no acute pathology. Patient had complete resolution of his symptoms. He was given IV magnesium and potassium. He is back to baseline. Updated family at bedside. Question stroke versus seizure versus electrolyte. Medication Reconcilliation Current Medication List: was personally reviewed by me Blood Pressure Screening Patient's blood pressure: Elevated blood pressure Blood pressure disposition: Referred to PCP Consults Time Called: 1912 Consulting Physician: Dr. Taylor, Neurology [facility] Returned Call: 1914 I discussed the patient's case with him. He will evaluate the patient. The patient is not a candidate for TPA as he is on eliquis. Additional Consults: Time Called: 2109 Consulted Physician: ELIZA Villafuerte hospitalist Returned Call: 2115 Additional Comments: I reviewed the patient's case with him. He will evaluate the patient for further management. Impression Primary Impression: CVA (cerebral vascular accident) Additional Impressions: Hypokalemia Hypomagnesemia Scribe Attestation The scribe's documentation has been prepared under my direction and personally reviewed by me in its entirety. I confirm that the note above accurately reflects all work, treatment, procedures, and medical decision making performed by me. Departure Information Dispostion Being Evaluated By Hospitalist Referrals No Doctor, Assigned (PCP) Forms HOME CARE DOCUMENTATION FORM, IMPORTANT VISIT INFORMATION Patient Instructions My [facility] Stroke History Time Last Known Well 30 minutes ago Stroke t-PA Criteria Reviewed Does NOT meet criteria for t-PA Reason t-PA Not Given Treatment not indicated Problem Qualifiers Primary Impression: CVA (cerebral vascular accident) CVA mechanism: unspecified Qualified Codes: I63.9 - Cerebral infarction, unspecified
--- NOTE | 2017-04-28 23:06 | DIAGNOSTIC IMAGING REPORT ---
ABDOMEN AND PELVIS CT WITHOUT CONTRAST CT DOSE: 721.29 mGy.cm HISTORY: Acute generalized abdominal pain with distention and diarrhea abdominal pain, distention, diarrhea TECHNIQUE: Multiaxial CT images of the abdomen and pelvis were performed without contrast. A dose lowering technique was utilized adhering to the principles of ALARA. COMPARISON STUDY: None. FINDINGS: Mild dependent subsegmental bibasilar atelectasis. There is no pneumatosis or pneumoperitoneum identified. Imaged inferior cardiac chambers are moderately enlarged. Mural fibrofatty changes of the left ventricular apex suggest remote infarction. The liver, spleen, pancreas and right adrenal gland are within normal limits. There is nodular thickening of the left adrenal gland with mild stranding stranding suggesting hyperplasia. Cholelithiasis without CT evidence of acute cholecystitis. No intrahepatic biliary ductal dilation. Retained contrast in the renal collecting systems from recent contrast-enhanced study. Mild nonspecific bilateral perinephric stranding. Exophytic hyperattenuating 1.3 cm lesion of the inferior pole left kidney posteriorly suggests proteinaceous or hemorrhagic cyst. No obstructive uropathy identified. Ureters are normal in caliber. Prostate is mildly prominent in size with central coarse calcifications. Small fat filled left inguinal hernia. Asymmetric prominence of the right seminal vesicles. 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 Mild dilation of the bilateral external iliac arteries also noted, 2.0 cm on the left and 1.8 cm on the right. No bulky adenopathy identified. Small sliding-type hiatal hernia. Prior right lower quadrant abdominal wall hernia repair. Extensive sigmoid colon diverticulosis without CT evidence of acute diverticulitis. Prior appendectomy. Mildly prominent loops of small bowel within the right upper and central upper abdomen demonstrate internal fecal contents in a mildly prominent in size. Additionally, there are several dilated loops of small bowel within the left upper abdomen measuring up to 4.0 cm transversely with associated air-fluid levels. The dilated loops are centered around an area of prior partial small bowel resection with a side side anastomosis, image 160 series 3. Angulated loops of small bowel are noted on image 233 series 3 suggesting underlying adhesions. Diastases recti with fat filled periumbilical hernia, diastases 2.2 cm. Bones appear intact. IMPRESSION: 1. Several loops of dilated small bowel within the central and left upper abdomen centered about an area of small bowel [id number] anastomosis are noted with associated angular loops and slightly decompressed distal small bowel compatible with small bowel obstruction. No pneumatosis or pneumoperitoneum identified. 2. Extensive sigmoid colon diverticulosis without CT evidence of acute diverticulitis. 3. Cholelithiasis without CT evidence of acute cholecystitis. 4. Small sliding type hiatal hernia. 5. 1.3 cm proteinaceous or hemorrhagic cyst of the left kidney. Electronically signed by: Gonzalo Frye M.D. 04/28/2017 11:05 PM Dictated Date/Time: 04/28/2017 10:50 PM
[2017-04-28] MEDS: MAGNESIUM SULFATE 1GM / D5W 1 GM in PREMIXED IN D5W 100 ML IV SCH (23:23)
[2017-04-28 23:59] VITALS: O2SAT 97
[2017-04-29] VITALS (8 sets, daily range): BP systolic 118–151; BP diastolic 73–88; PULSE 66–77; TEMP 36.4–36.9; O2SAT 94–97
[2017-04-29] MEDS: MAGNESIUM SULFATE 1GM / D5W 1 GM in PREMIXED IN D5W 100 ML IV SCH ×3 (00:30→04:01)
[2017-04-29] MEDS: NSS + 20MEQ KCL 1000ML 1,000 ML IV SCH ×2 (00:36→11:43)
[2017-04-29] MEDS ORDERED: NURSING VERBAL MED ORDER ONE (01:30)
[2017-04-29] MEDS: NICOTINE 14 MG/24 HR TDSY TD SCH ×2 (03:23→08:17)
[2017-04-29] MEDS ORDERED: PIPERACILL/TAZOBAC CONSULT ACTIVE PRN (05:00)
[2017-04-29] MEDS ORDERED: PIPERACILL/TAZOBAC IV 3.375 GM in DEXTROSE 5% 100ML IV ONE (05:30)
[2017-04-29 06:55] LABS: BASO % 0.3 %; BASO ABS # 0.02 K/uL (0-0.2); EOS % 1.4 %; EOS ABS # 0.09 K/uL (0-0.5); HEMATOCRIT 41.4 % (42-52); HEMOGLOBIN 14.5 g/dL (14.0-18.0); IG# 0.01 K/uL (0.00-0.02); LYMPH ABS # 1.44 K/uL (1.2-3.4); MEAN PLATELET VOLUME 9.5 fL (7.4-10.4); MONO % 10.7 %; NEUT % 65.4 %; NEUT ABS # 4.28 K/uL (1.4-6.5); PLATELET COUNT 174 K/uL (130-400); RED CELL DISTRIBUTION WIDTH CV 13.7 % (11.5-14.5); RED CELL DISTRIBUTION WIDTH SD 48.9 fL (36.4-46.3); WHITE BLOOD COUNT 6.54 K/uL (4.8-10.8)
[2017-04-29 07:26] LABS: CREATININE 0.82 mg/dl (0.60-1.40); POTASSIUM 2.8 mmol/L (3.5-5.1)
[2017-04-29] MEDS: METOPROLOL TARTRATE 1 MG/ML VIAL IV. SCH ×3 (08:16→16:24)
[2017-04-29] MEDS ORDERED: POTASSIUM CHLORIDE 10 MEQ TABCR PO STA (08:25)
--- NOTE | 2017-04-29 08:37 | Surgery Consultation ---
Consultation Date of Consultation: Apr 29, 2017. Attending Physician: Robbin Reynolds M.D. History of Present Illness he patient is a 71-year-old male who presents to the emergency department with family, due to the development of confusion about 30 minutes prior to arrival. The patient's initially served as primary participant administrator of HPI due to patient's early confusion. She reports that he was walking with her when he suddenly became confused, had slurred speech, was not making any sense when he was talking, and felt generally weak. When he arrived to the ED, the nurse had to help him out of the car and she reported that he was unable to move his right upper extremity at that time. 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 He is on Eliquis for history of atrial fibrillation. Later on during his ED visit when I examined him, when he was somewhat improved , he reported to me that he was having issues with abdominal discomfort and loose stools for a few days, with decreased oral intake for that reason. Because of his initial symptoms upon presentation to the ED, he was worked up as a stroke alert. I got a call for consult SBO, I reviewed pt's H/P with pt and his , pt denies abdominal pain, no nausea, no vomiting, last BM yesterday. Past Medical/Surgical History Medical Problems: (1) CVA (cerebral vascular accident) Status: Acute (2) Hypokalemia Status: Acute Social History Smoking Status: Unknown if Ever Smoked Smokeless Tobacco Use: No Alcohol Use: none Drug Use: none Marital Status: Allergies Coded Allergies: Sulfamethoxazole w/Trimethoprim (Verified Allergy, Intermediate, HIVES, 12/06) Home Medications Scheduled Apixaban (Eliquis), Unknown Dose PO BID Diltiazem Hcl Ext Rel (Tiazac), Unknown Dose PO BID Miscellaneous Medications [Unknown Antibiotic] Current Inpatient Medications Current Inpatient Medications Medications (Trade) Dose Ordered Sig/Jaylyn Route Start Time Stop Time Status Last Admin Dose Admin Ioversol (Optiray 320) 100 ml UD PRN IV 04/28/17 20:15 05/02/17 20:14 Potassium Chloride/Sodium Chloride 1,000 ml @ 100 mls/hr Q10H IV 04/29/17 00:00 05/29/17 00:00 04/29/17 00:36 100 MLS/HR Acetaminophen (Tylenol Tab) 650 mg Q4H PRN PO 04/28/17 22:00 05/28/17 21:59 Ondansetron HCl (Zofran Odt) 8 mg Q6H PRN PO 04/28/17 22:15 05/28/17 22:14 Acetaminophen 100 ml @ 400 mls/hr Q8H PRN IV 04/28/17 22:15 05/28/17 22:14 Pantoprazole Sodium 40 mg/ Syringe 10 ml @ 5 mls/min DAILY@11 IV 04/29/17 11:00 05/29/17 10:59 Nicotine (Nicoderm Cq 14MG Patch) 1 patch QAM TD 04/29/17 01:45 05/29/17 01:44 04/29/17 08:17 1 PATCH Miscellaneous (Remove Nicoderm Patch) 1 ea QAM N/A 04/29/17 09:00 05/29/17 08:59 04/29/17 08:17 1 EA Metoprolol Tartrate (Lopressor Iv) 5 mg Q4 IV. 04/29/17 08:00 05/29/17 07:59 04/29/17 08:16 5 MG Piperacillin Sod/ Tazobactam Sod 3.375 gm/Dextrose 115 ml @ 28.75 mls/ hr Q8H IV 04/29/17 12:00 05/09/17 11:59 Miscellaneous Information (Consult) 1 ea UD PRN N/A 04/29/17 05:00 05/29/17 04:59 Review of Systems Constitutional: No fever, No chills, No sweats, No weight loss, No weakness, No fatigue, No problem reported Eyes: No worsening of vision, No eye pain, No redness, No discharge, No diplopia, No problem reported ENT: No hearing loss, No unusual epistaxis, No nasal symptoms, No sore throat, No tinnitus, No dental problems, No trouble swallowing, No problem reported Respiratory: No cough, No sputum, No wheezing, No shortness of breath, No dyspnea on exertion, No dyspnea at rest, No hemoptysis, No problem reported Cardiovascular: No chest pain, No orthopnea, No PND, No edema, No claudication , No palpitations, No problem reported Abdomen: + problem reported (pt had Small bowel resection in [facility] last year), No pain, No nausea, No vomiting, No diarrhea, No constipation , No GI bleeding Neurologic: No memory loss, No paralysis, No weakness, No numbness/tingling, No vertigo, No balance problems, No problem reported Psychiatric: No depression symptoms, No anhedonism, No anxiety, No insomnia, No substance abuse, No problem reported Endocrine: No fatigue, No excessive thirst, No excessive urination, No problem reported Physical Exam Date Time Temp Pulse Resp B/P (MAP) Pulse Ox O2 Delivery O2 Flow Rate FiO2 04/29/17 08:16 94 129/82 04/29/17 07:54 36.7 68 18 129/82 (98) 95 04/29/17 04:00 94 Room Air 04/29/17 03:11 36.5 70 19 118/73 (88) 94 Room Air 04/29/17 00:45 36.4 66 18 151/76 (101) 97 Room Air 04/28/17 23:59 97 Room Air 04/28/17 22:30 36.3 78 18 168/89 97 Room Air 04/28/17 21:51 76 18 138/81 96 Room Air 04/28/17 20:45 75 18 159/83 97 Room Air 04/28/17 19:41 78 04/28/17 19:05 Room Air 04/28/17 19:01 36.4 04/28/17 18:56 66 20 178/89 95 Room Air General Appearance: WD/WN, no apparent distress Head: normocephalic Eyes: normal inspection ENT: normal ENT inspection Neck: supple, no JVD Respiratory/Chest: chest non-tender, lungs clear Cardiovascular: regular rate, rhythm, no edema, no gallop, no JVD Abdomen/GI: normal bowel sounds, non tender, soft, no organomegaly, no pulsatile mass, + pertinent finding (lower middle line scae, small umbilical hernia, reducible, ) Extremities/Musculoskelatal: normal inspection, no calf tenderness Neurologic/Psych: no motor/sensory deficits, alert, normal mood/affect, oriented x 3 Skin: normal color, warm/dry, no rash Laboratory Results Last 24 Hours Test 04/28/17 19:01 04/28/17 19:02 04/28/17 19:04 04/28/17 19:07 Bedside Prothrombin Time INR 1.1 Bedside Glucose 106 mg/dl White Blood Count 7.41 K/uL Red Blood Count 5.11 M/uL Hemoglobin 17.4 g/dL Hematocrit 49.8 % Mean Corpuscular Volume 97.5 fL Mean Corpuscular Hemoglobin 34.1 pg Mean Corpuscular Hemoglobin Concent 34.9 g/dl Platelet Count 211 K/uL Mean Platelet Volume 10.0 fL Neutrophils (%) (Auto) 64.6 % Lymphocytes (%) (Auto) 25.1 % Monocytes (%) (Auto) 8.4 % Eosinophils (%) (Auto) 1.3 % Basophils (%) (Auto) 0.3 % Neutrophils # (Auto) 4.79 K/uL Lymphocytes # (Auto) 1.86 K/uL Monocytes # (Auto) 0.62 K/uL Eosinophils # (Auto) 0.10 K/uL Basophils # (Auto) 0.02 K/uL RDW Standard Deviation 48.3 fL RDW Coefficient of Variation 13.6 % Immature Granulocyte % (Auto) 0.3 % Immature Granulocyte # (Auto) 0.02 K/uL Prothrombin Time 11.4 SECONDS Prothromb Time International Ratio 1.1 Activated Partial Thromboplast Time 27.7 SECONDS Partial Thromboplastin Ratio 1.1 Sodium Level 141 mmol/L Potassium Level 3.0 mmol/L Chloride Level 106 mmol/L Carbon Dioxide Level 26 mmol/L Anion Gap 9.0 mmol/L 20.0 mmol/L Blood Urea Nitrogen 14 mg/dl Creatinine 1.17 mg/dl Est Creatinine Clear Calc Drug Dose 62.2 ml/min Estimated GFR () 72.8 Estimated GFR (Non- 62.8 BUN/Creatinine Ratio 12.1 Random Glucose 102 mg/dl Calcium Level 8.9 mg/dl Magnesium Level 0.4 mg/dl Total Bilirubin 0.7 mg/dl Direct Bilirubin 0.2 mg/dl Aspartate Amino Transf (AST/SGOT) 28 U/L Alanine Aminotransferase (ALT/SGPT) 44 U/L Alkaline Phosphatase 77 U/L Total Creatine Kinase 155 U/L Creatine Kinase MB 2.4 ng/ml Creatine Kinase MB Ratio 1.5 Troponin I < 0.015 ng/ml Total Protein 7.7 gm/dl Albumin 3.7 gm/dl Bedside Hemoglobin 17.0 g/dl Bedside Hematocrit 50 % Bedside Sodium 144 mEq/L Bedside Potassium 3.1 mEq/L Bedside Chloride 102 mEq/L Bedside Total CO2 25 mEq/l Bedside Blood Urea Nitrogen 14 mg/dl Bedside Creatinine 0.9 mg/dl Bedside Glucose (other) 105 mg/dl Bedside Ionized Calcium (Robert) 1.10 mmol/l Test 04/28/17 20:35 04/29/17 06:27 Urine Color YELLOW Urine Appearance CLEAR Urine pH 6.5 Urine Specific [place] 1.020 Urine Protein 2+ Urine Glucose (UA) NEG Urine Ketones TRACE Urine Occult Blood NEG Urine Nitrite NEG Urine Bilirubin NEG Urine Urobilinogen NEG Urine Leukocyte Esterase NEG Urine WBC (Auto) 1-5 /hpf Urine RBC (Auto) 0-4 /hpf Urine Hyaline Casts (Auto) 1-5 /lpf Urine Epithelial Cells (Auto) 5-10 /lpf Urine Bacteria (Auto) NEG White Blood Count 6.54 K/uL Red Blood Count 4.27 M/uL Hemoglobin 14.5 g/dL Hematocrit 41.4 % Mean Corpuscular Volume 97.0 fL Mean Corpuscular Hemoglobin 34.0 pg Mean Corpuscular Hemoglobin Concent 35.0 g/dl Platelet Count 174 K/uL Mean Platelet Volume 9.5 fL Neutrophils (%) (Auto) 65.4 % Lymphocytes (%) (Auto) 22.0 % Monocytes (%) (Auto) 10.7 % Eosinophils (%) (Auto) 1.4 % Basophils (%) (Auto) 0.3 % Neutrophils # (Auto) 4.28 K/uL Lymphocytes # (Auto) 1.44 K/uL Monocytes # (Auto) 0.70 K/uL Eosinophils # (Auto) 0.09 K/uL Basophils # (Auto) 0.02 K/uL RDW Standard Deviation 48.9 fL RDW Coefficient of Variation 13.7 % Immature Granulocyte % (Auto) 0.2 % Immature Granulocyte # (Auto) 0.01 K/uL Sodium Level 141 mmol/L Potassium Level 2.8 mmol/L Chloride Level 107 mmol/L Carbon Dioxide Level 26 mmol/L Anion Gap 8.0 mmol/L Blood Urea Nitrogen 11 mg/dl Creatinine 0.82 mg/dl Est Creatinine Clear Calc Drug Dose 83.9 ml/min Estimated GFR () 103.8 Estimated GFR (Non- 89.6 BUN/Creatinine Ratio 13.0 Random Glucose 84 mg/dl Calcium Level 8.0 mg/dl Magnesium Level 2.2 mg/dl Assessment & Plan CT scan-FINDINGS: Mild dependent subsegmental bibasilar atelectasis. There is no pneumatosis or pneumoperitoneum identified. Imaged inferior cardiac chambers are moderately enlarged. Mural fibrofatty changes of the left ventricular apex suggest remote infarction. The liver, spleen, pancreas and right adrenal gland are within normal limits. There is nodular thickening of the left adrenal gland with mild stranding stranding suggesting hyperplasia. Cholelithiasis without CT evidence of acute cholecystitis. No intrahepatic biliary ductal dilation. Retained contrast in the renal collecting systems from recent contrast-enhanced study. Mild nonspecific bilateral perinephric stranding. Exophytic hyperattenuating 1.3 cm lesion of the inferior pole left kidney posteriorly suggests proteinaceous or hemorrhagic cyst. No obstructive uropathy identified. Ureters are normal in caliber. Prostate is mildly prominent in size with central coarse calcifications. Small fat filled left inguinal hernia. Asymmetric prominence of the right seminal vesicles. 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 Mild dilation of the bilateral external iliac arteries also noted, 2.0 cm on the left and 1.8 cm on the right. No bulky adenopathy identified. Small sliding-type hiatal hernia. Prior right lower quadrant abdominal wall hernia repair. Extensive sigmoid colon diverticulosis without CT evidence of acute diverticulitis. Prior appendectomy. Mildly prominent loops of small bowel within the right upper and central upper abdomen demonstrate internal fecal contents in a mildly prominent in size. Additionally, there are several dilated loops of small bowel within the left upper abdomen measuring up to 4.0 cm transversely with associated air-fluid levels. The dilated loops are centered around an area of prior partial small bowel resection with a side side anastomosis, image 160 series 3. Angulated loops of small bowel are noted on image 233 series 3 suggesting underlying adhesions. Diastases recti with fat filled periumbilical hernia, diastases 2.2 cm. Bones appear intact. IMPRESSION: 1. Several loops of dilated small bowel within the central and left upper abdomen centered about an area of small bowel [id number] anastomosis are noted with associated angular loops and slightly decompressed distal small bowel compatible with small bowel obstruction. No pneumatosis or pneumoperitoneum identified. 2. Extensive sigmoid colon diverticulosis without CT evidence of acute diverticulitis. 3. Cholelithiasis without CT evidence of acute cholecystitis. 4. Small sliding type hiatal hernia. 5. 1.3 cm proteinaceous or hemorrhagic cyst of the left kidney. Assessment: pt is a 71 year old male who presents to [facility] with weakness and confusion, pt had CT scan- SBO, pt denies abdominal pain, no nausea no vomiting, IMP: possible partial SBO correct low k, K-dur 20 MEQ, then 10 MEQ bid po clear diet, will F/U
[2017-04-29] MEDS ORDERED: DILTIAZEM HCL 120 MG CAPCR PO SCH (09:00)
[2017-04-29] MEDS ORDERED: HEPARIN SOD 5000 UNIT/0.5 ML CARP SQ SCH (09:00)
[2017-04-29] MEDS ORDERED: APIXABAN 2.5 MG TAB PO SCH (09:00)
[2017-04-29] MEDS ORDERED: POTASSIUM CHLORIDE 10 MEQ TABCR PO SCH (09:00)
[2017-04-29] MEDS ORDERED: PANTOprazole INJ 40 MG in SYRINGE 0 ML IV SCH (11:00)
[2017-04-29] MEDS ORDERED: PIPERACILL/TAZOBAC IV 3.375 GM in DEXTROSE 5% 100ML 100 ML IV SCH (12:00)
[2017-04-29] MEDS ORDERED: GADAVIST IV PRN (14:30)
--- NOTE | 2017-04-29 14:40 | DIAGNOSTIC IMAGING REPORT ---
MRI OF THE BRAIN WITHOUT AND WITH IV CONTRAST CLINICAL HISTORY: Headaches, difficulty talking, stroke like symptoms. COMPARISON STUDY: Noncontrast head CT dated 04/28/2017 TECHNIQUE: MRI of the brain was performed from the vertex to the skull base utilizing various T1 and T2 weighted sequences. Following the IV administration of 8 mL of Gadavist contrast, additional enhanced images were obtained. FINDINGS: Sagittal T1, axial diffusion, proton density and T2 weighted axial, coronal FLAIR, and pre and post axial T1-weighted images were acquired. These were supplemented with post gadolinium coronal T1 weighted images. No intra or extra-axial mass lesions are visualized. Axial diffusion-weighted images reveal no evidence of acute or subacute infarction. There is no evidence of ventricular dilatation. Proton density T2-weighted and FLAIR images reveal moderately extensive foci of increased T2 signal within the white matter, likely on a small vessel basis. There are no abnormal flow voids. There is no evidence of pathologic enhancement. There are foci of increased T2 signal within the mastoids left greater than right, likely on an inflammatory basis. IMPRESSION: 1. No evidence of acute or subacute infarction 2. No evidence of intracranial mass 3. Moderately extensive foci of increased T2 signal within the white matter, likely on a small vessel basis. 4. Presumed inflammatory changes within the mastoids Electronically signed by: Lucian Ngo M.D. 04/29/2017 2:39 PM Dictated Date/Time: 04/29/2017 2:37 PM
[2017-04-29] MEDS ORDERED: METRONIDAZOLE 500 MG TAB PO SCH ×2 (16:00→21:00)
[2017-04-29] MEDS ORDERED: MTR500 PO (18:56)
--- NOTE | 2017-04-29 19:06 | Discharge Instructions ---
Discharge Instructions Date of Service Apr 29, 2017. Admission Reason for Admission: Altered Mental Status, Hypomagnesemia Discharge Discharge Diagnosis / Problem: Hypomagnesemia, cdiff infection, partial small bowel obstruction Discharge Goals Goal(s): Decrease discomfort, Improve function, Increase independence Activity Recommendations Activity Limitations: resume your previous activity . Instructions / Follow-Up Instructions / Follow-Up You should advance your diet slowly. You should avoid heavy, spicy, or fatty meals. You should continue to take your probiotic. You should follow up with your PCP next week and have them check a basic metabolic panel and Magnesium levels Current Hospital Diet Patient's current hospital diet: Full Liquid Diet Discharge Diet Recommended Diet: Regular Diet (as above) Pending Studies Studies pending at discharge: no Medical Emergencies . Who to Call and When: Medical Emergencies: If at any time you feel your situation is an emergency, please call 911 immediately. . Non-Emergent Contact Non-Emergency issues call your: Primary Care Provider . . "Provider Documentation" section prepared by Lillie Gaspar. .
--- NOTE | 2017-04-29 19:12 | Discharge Summary ---
Discharge Summary Date of Service Apr 29, 2017. Discharge Summary Admission Date: Apr 28, 2017 at 21:37 Discharge Date: Apr 29, 2017 Discharge Disposition: Home Principal Diagnosis: HypoMg, cdiff, partial SBO Problems/Secondary Diagnoses: Facial droop s/p facial surgery afib, on eliquis HTN Hx of open appendectomy with partial colectomy Immunizations: Have You Had Influenza Vaccine: Unknown History of Tetanus Vaccine?: Unknown History of Pneumococcal: Unknown History of Hepatitis B Vaccine: Unknown Consultations: Gen surgery Medication Reconciliation New Medications: Metronidazole (Metronidazole) 500 Mg Tab 500 MG PO Q8 for 14 Days, #42 TAB Continued Medications: Apixaban (Eliquis) Unknown Strength Tab Unknown Dose PO BID Diltiazem Hcl Ext Rel (Tiazac) Unknown Strength Capcr Unknown Dose PO BID, CAP Discontinued Medications: [Unknown Antibiotic] () BEGIN 04/24/17, TAKE ONE TWICE DAILY FOR 10 DAYS. Discharge Exam Pt is doing well today. His neuro sx resolved quickly and have not returned. He has been having bowel movements. He takes eliquis at baseline and has not missed any doses. Pt was on abx [employer] for an infection NOS. He started having diarrhea a few days prior to admission. He started probiotics at that time, he is unsure what bacteria were in the probiotics. He has never had anything like these neuro sx in the past. Pt denies fever, SOB, chest pain, abd pain, n/v/c/d , LE pain or swelling. Physical Exam: General Appearance: WD/WN, no apparent distress Eyes: normal inspection, sclerae normal Respiratory/Chest: normal breath sounds, no respiratory distress Cardiovascular: regular rate, rhythm, no edema Abdomen / GI: non tender, soft, + distended Extremities: no calf tenderness, no pedal edema Neurologic/Psychiatric: alert, normal mood/affect, oriented x 3, + facial droop (R sided and chronic) Skin: normal color, warm/dry Hospital Course AMS: resolved [employer] and has not returned Possible TIA, however pt is on eliquis at baseline and did not miss doses CT head and CTA head and neck neg other than 50% stenosis on L subclavian. MRI head neg Possibly related to severe hypoMg noted on admission, with Mg or 0.4 Repleted and 2.2 on d/c Will need checked next week and monitored by PCP Partial SBO: possibly related to recent OR Resolved with conservative management Advised slow advancement of diet as outpt after tolerating both clear and full liquids today Gen surgagrees with d/c as noted above Cdiff: likely related to recent abx use d/c abx Start flagyl Pt given 24 hour dosing from pharmacy as they are planning to travel tonight Continue probiotics HTN/afib: continue home medications Total Time Spent: Greater than 30 minutes This includes examination of the patient, discharge planning, medication reconciliation, and communication with other providers. Discharge Instructions Please refer to the electronic Patient Visit Report (Discharge Instructions) for additional information. Follow-Up PCP next week
== END 2017-04-29 20:33 | disposition home or self-care (01) | DRG 389 ==
LOC: C.EDB 18:56 → C.2T 21:37 → ENRESERV 22:05 → C.2T 04-29 13:40
PROVIDERS: ADMIT Hospitalist; ATTEND Family Medicine
DX: K56.690 Other partial intestinal obstruction (principal); A04.72 Enterocolitis due to Clostridium difficile, not specified as recurrent; E83.42 Hypomagnesemia; E87.6 Hypokalemia; R41.82 Altered mental status, unspecified; R47.81 Slurred speech; I77.1 Stricture of artery; I48.91 Unspecified atrial fibrillation; I10 Essential (primary) hypertension; Z90.49 Acquired absence of other specified parts of digestive tract; Z79.01 Long term (current) use of anticoagulants; Z79.899 Other long term (current) drug therapy; Z88.2 Allergy status to sulfonamides